=== PATIENT | female | born 1990 | race Caucasian/White ===

== ENCOUNTER 2016-06-07 00:55 | Emergency (ER) | payer BC, OTHER ==
[~2016-06-07] VITALS: Ht 154.9 cm; Wt 60.5 kg
[~2016-06-07 00:55] MED LIST: ALBU8.5H3 INH; CETI10CA PO; CYCL-117; CYCL-319 PO; GUAI120S26 PO; HYDR-906 PO; IBUP-1542 PO; TRAZ50TA18
[2016-06-07 01:18] VITALS: Ht 154.9 cm; Wt 60.5 kg
== END 2016-06-07 04:55 | disposition left against medical advice (07) ==
LOC: FTE 00:55 → E/R 04:55
DX: Z53.21 Procedure and treatment not carried out due to patient leaving prior to being seen by health care provider (principal)